=== PATIENT | male | born 1985 | race Caucasian/White ===

== ENCOUNTER 2023-08-14 15:34 | Outpatient (AMB) | payer OTHER, SELFPAY ==
[2023-08-14 15:37] VITALS: BP 130/80; PULSE 96; TEMP 36.6; O2SAT 97; BMI 40.2
--- NOTE | 2023-08-14 15:37 | MHC.OFFWIV ---
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 He is between doctors and is looking for a refill of Zoloft. He has been taking Zoloft 150 mg for the past ten years. Was seeing a provider in [place] and could not continue to see him for insurance reasons. Was at [facility] and was directed here for a refill. Currently not working. Denies alcohol or drug use. [facility] Medical History (Updated 08/14/23 @ 15:57 by Ricki Patel MD) Generalized anxiety disorder Social History Patient Tobacco Use Status: Never used Tobacco Physical Exam Vital Signs: Last Vital Signs Temp 97.8 F 08/14/23 15:37 Pulse 96 08/14/23 15:37 BP 130/80 08/14/23 15:37 Pulse Ox 97 08/14/23 15:37 BMI result Body Mass Index 40.2 Const General: cooperative and healthy appearing Nutritional Appearance: well nourished Orientation/consciousness: patient oriented x3 Limitations: no limitations HEENT Head: Yes normal to inspection Eyes General: appearance normal, both eyes and all related structures Neck Neck: Yes normal visual inspection Chest Chest palpation & inspection: normal palpation of entire chest wall Resp Effort & Inspection: normal respiratory effort Neuro General: patient oriented x3 Assessment & Plan Assessment & Plan (1) Generalized anxiety disorder: Code(s): F41.1 - Generalized anxiety disorder Plan: Zoloft called in. Message sent to see if he can be seen earlier at [facility]. Coding Level of Care Code New Pt Level 3 (75287) Diagnoses Generalized anxiety disorder F41.1
== END 2023-08-14 16:02 | disposition home or self-care (01) ==
PROVIDERS: PCP Pediatrics; Visit Provider Internal Medicine
DX: F41.1 Generalized anxiety disorder (principal)
CPT/HCPCS: 99203

== ENCOUNTER 2023-10-25 11:51 | Outpatient (AMB) | payer OTHER, SELFPAY ==
--- NOTE | 2023-10-25 11:53 | A.OFFPC_ITS ---
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 Required: No Allergies No Known Allergies Allergy (Verified 10/25/23 12:23) Medication List - Last Reconciled 10/25/23 by DEREK HillP- sertraline 150 mg (1.5 x 100 mg) PO Q24H Tobacco use date assessed: 10/25/23 Dental Screening Dental Screen Date: 10/25/23 Did you have a dental visit in the last 12 months?: No Did you have a dental problem in the last 6 months where you did not have access to dental care?: No Was dental information given to patient?: Patient has dentist HPI HPI Comments History of Present Illness Details 38-year-old with ALEKSANDER, obesity Social: unemployed Surgery: testicular surgery in childhood Family: Dad age 53 with FL with AICD & DM, Mom healthy. Siblings brother and sister alive and well. Children none Maternal uncle age 50 of colon cancer Health Maintenance: ? Colon ? Tdap will update today Specialists: None Here today to establish care and for complete physical exam No previous medical records available to me. Overall reports that he is in a good state of health. He was not treated for any chronic health conditions other than his generalized anxiety disorder which is well controlled on sertraline. He is not currently active with a counselor, he is interested in a referral. He does complain of trouble with distance reading. He does not currently wear eyeglasses. His last eye exam was 5 years ago. He reports a cyst on his back that he has had for as long as he knows. Has not changed. It is not painful. The only other complaint is that of chronic nasal congestion that seems to be worse at the end of the day when he was showering. Feels like this may be started a few months ago. Wondered if maybe it was seasonal allergies as start taking atsr-vtu-[id number] antihistamine without relief. He does admit that he snores however denies any other symptoms related to sleep apnea. He has never had a sleep study. Wakes feeling rested. General: Well developed, well nourished, in no acute distress. Appears stated age. Head: Normocephalic, atraumatic. Eyes: Pupils are equal, round and reactive to light and accommodation. Conjunctivae are clear. Vision grossly normal. Ears: TMs clear AU, EACS WNL + congestion behind both TM Nose: Patent, without discharge. Nares pale and edematous bilat Mouth: There are no ulcers or lesions noted. No inflammation, no post nasal drip, no plaques nor exudates. Neck: Supple, no adenopathy or thyromegaly. Lungs: Clear to auscultation bilaterally. No rales, rhonchi or wheeze noted. Good air flow in all das. Heart: Regular rate and rhythm. No murmurs, click, rubs or gallops are noted. Abdomen: Bowel sounds present in all quadrants. The abdomen is soft, nontender, with no masses or organomegaly noted. No hernias are noted. Musculoskeletal: Joints are nontender, without swelling, redness, or effusions. Range of motion is observed to be normal. Pulses: Peripheral pulses are equal and palpable bilaterally. Extremities: No clubbing, cyanosis nor edema is noted. Neurologic: Gait and station normal. Cranial Nerves 2-12 intact. Motor strength grossly symmetrical and intact. No sensory loss. Balance normal. Skin: No rashes, ulcers, or lesions noted. Turgor is good. Skin color is good. Hair and nails are without abnormalities. Midline upper back is palpable cyst Psych: Normal eye contact, affect and mood appropriate, and normal interactions. Patient is alert and appropriate to context. Labs from today show normal electrolytes, normal renal function, normal fasting glucose, hemoglobin A1c 5.5%, normal LFTs, normal lipid profile, normal TSH, elevated urine microalbumin creatinine ratio to 226.6 Plan: Flonase for nasal congestion Screening labs today within normal limits with the exception of an elevated urine microalbumin creatinine ratio. This could be related to hydration status. We will have him liberally hydrate and we will repeat this in the future. RTO 1 year for CPE, sooner PRN Tdap today Counseling referral Optho referral [facility] Medical History (Updated 10/25/23 @ 15:44 by Karma Mayorga, SALES DEVELOPMENT REPRESENTATIVE-) History of OCD (obsessive compulsive disorder) Depression Anxiety Generalized anxiety disorder Family History (Updated 10/25/23 @ 12:06 by Ally Alex) Father Diabetes Social History Housing: House Patient Tobacco Use Status: Never used Tobacco e-Cigarette/Vaping Use: Never Used service: No Current occupational status: unemployed Current occupational exposures/hazards: No Cognitive needs: No Vision needs: No Questionnaire PHQ-9 Over the last 2 weeks, how often have you been bothered by any of the following problems? 1. Little interest or pleasure in doing things: not at all 2. Feeling down, depressed, or hopeless: not at all 3. Trouble falling or staying asleep, or sleeping too much: not at all 4. Feeling tired or having little energy: not at all 5. Poor appetite or overeating: not at all 6. Feeling bad about yourself - or that you are a failure or have let yourself or your family down: not at all 7. Trouble concentrating on things, such as reading the newspaper or watching television: not at all 8. Moving or speaking so slowly that other people could have noticed. Or the opposite - being so fidgety or restless that you have been moving around a lot more than usual: not at all 9. Thoughts that you would be better off or of hurting yourself in some way: not at all Total score: 0 Depression Screening Interpretation: Negative Depression Screening Done: Yes 11681 - PHQ-9 Billing: Yes Source: Developed by Drs. Sae Fam, Gretta Alvarez, Wilbur Paul and colleagues, with an educational anand from [employer]. Thrive Questionnaire Date Thrive assessed: 10/25/23 I am a: Patient What is your living situation today?: I have a steady place to live Within the past 12 months, did the food you bought not last and you didn't have the money to get more?: Never true Within the past 12 months, did you worry whether your food would run out before you got money to buy more?: Never true Do you have trouble paying for medicines?: No Do you have trouble getting transportation to medical appointments?: No Do you have trouble paying your heating and electricity bill?: No Do you have trouble taking care of your child, family member or friend?: No Do you have trouble with day-to-day activities such as bathing, preparing meals, shopping, managing finances, etc.?: No Are you currently unemployed and looking for a job?: No Are you interested in more education?: No Please select the resources that you would like help with: None Currently or been in a relationship where the following occur: No concerns reported THRIVE Score: 0 AUDIT C Alcohol Use Questionnaire (AUDIT-C) 1. How often do you have a drink containing alcohol?: Monthly or less (couple times a year) 2. How many drinks containing alcohol do you have on a typical day when you are drinking?: 1 or 2 3. How often do you have six or more drinks on one occasion?: Never Total Score: 1 Score Reviewed/Action Taken: Yes ALEKSANDER-7 AMB Questionnaire ALEKSANDER-7 Date ALEKSANDER - 7 assessed: 10/25/23 Feeling nervous, anxious, or on edge: 0 = Not at all Not being able to stop or control worryin = Several days Worrying too much about different things: 1 = Several days Trouble relaxin = Several days Being so restless that it is hard to sit still: 0 = Not at all Becoming easily annoyed or irritable: 0 = Not at all Feeling afraid as if something awful might happen: 0 = Not at all Total ALEKSANDER-7 score (0-4 normal; 5-9 mild; 10-14 moderate; 15-21 severe): 3 Source: Developed by Drs. Sae Fam, Gretta Alvarez, Wilbur Paul and colleagues, with an educational anand from [employer]. ALEKSANDER-7 Assessment Billing ALEKSANDER-7 Assessment Tool: ALEKSANDER-7 Assessment 97678 Physical exam (Primary Care) Vital Signs: Last Vital Signs Temp 97.5 F 10/25/23 12:00 Pulse 85 10/25/23 12:00 Resp 16 10/25/23 12:00 BP 138/78 10/25/23 12:00 Pulse Ox 98 10/25/23 12:00 Oxygen Delivery Method Room Air 10/25/23 12:00 BMI result Body Mass Index 43.5 BMI Assessment/Plan discussion: High BMI High, discussed plan: lifestyle Tobacco/Smoking Status: Tobacco use Status Tobacco use date assessed 10/25/23 10/25/23 11:59 Patient Tobacco Use Status Never used Tobacco 10/25/23 11:56 e-Cigarette/Vaping Use Never Used 10/25/23 11:59 PHQ-9: PHQ-9 Score PHQ-9: Total score 0 10/25/23 12:59 Depression Screening Interpretation: Negative Thrive Assessment: Date of Thrive Assessment Date Thrive assessed 10/25/23 10/25/23 12:08 Currently or been in a relationship where the following occur: No concerns reported Immunizations Boostrix Tdap 2.5 Lf unit-8 mcg-5 Lf/0.5 mL intramuscular syringe Performing Provider: NGA [facility] [place] [facility] [place] [facility] Administered by: Iram Posadas CMA on 10/25/23 12:57 Dose Route Admin Location Dispensed Lot Number Expiration Date [employer] Program Analyst 0.5 mL IM Left Deltoid 0.5 mL [id number] 11/08/25 [id number] [employer] VIS Given Date VIS Provided VIS Publication Date 10/25/23 Single Vaccine 20 Eligibility Eligibility Date Funding Source Not [facility] Eligible 10/25/23 Private Assessment and Plan Assessment & Plan (1) Encounter for general adult medical examination without abnormal findings: Code(s): Z00.00 - Encounter for general adult medical examination without abnormal findings (2) Laboratory exam ordered as part of routine general medical examination: Code(s): Z00.00 - Encounter for general adult medical examination without abnormal findings (3) Generalized anxiety disorder: Code(s): F41.1 - Generalized anxiety disorder (4) Blurred vision: Code(s): H53.8 - Other visual disturbances (5) Obesity, morbid, BMI 40.0-49.9: Code(s): E66.01 - Morbid (severe) obesity due to excess calories Orders: Orders Hemoglobin A1c Today Z00.00 - Encounter for general adult medical examination without abnormal findings Lipid Panel Today Z00.00 - Encounter for general adult medical examination without abnormal findings Comprehensive [place]. Panel Fast Today Z00.00 - Encounter for general adult medical examination without abnormal findings TSH reflex Free T4 Today Z00.00 - Encounter for general adult medical examination without abnormal findings Microalbumin, Random (w Creat) Today Z00.00 - Encounter for general adult medical examination without abnormal findings TDaP Immunization Today Z23 - Encounter for immunization Referrals Counseling Referral F41.1 - Generalized anxiety disorder Ophthalmology Referral H53.8 - Other visual disturbances Medications: New fluticasone propionate 50 mcg/actuation administer into each nostril 1 spray intranasal BID 16 grams 8RF Refilled sertraline 150 mg (1.5 x 100 mg) PO Q24H 90 tabs 0RF Patient Instructions: Walk-In Care (Urgent Care): We Make it Easy Walk-in for urgent medical issues such as: ? Seasonal Allergies ? Insect Bites ? Cough ? Diarrhea ? Acute Asthma Attacks ? Back, Knee or Joint Pain ? Ear Infection ? Fever without a Rash ? Headaches ? Nausea ? [place], Rash or Skin Irritation ? Sore Throat ? Sports Physicals ? Vomiting Most insurances are accepted. Patients do not need to be part of the [facility] to seek care at the walk-in clinic. Locations [facility] , [place] [address] ? [phone] [facility] [place] provides services to ages 18 and over. Open Sunday-Sunday: 8 a.m. to 5 p.m. and Sunday: 9 a.m. to 3 p.m.* *Hours may vary due to staffing availability. To confirm Walk-In Care hours in [place], please call [phone]. [address] [place] [address] ? [phone] [facility] [place] provides services to ages 12 and over. Open Sunday-Sunday: 8 a.m. to 5 p.m. Hours may vary due to staffing availability. To confirm Walk-In Care hours in [place], please call [phone]. LABORATORY SERVICES: [facility] Lab ? Primary Location [address] [place] [address] Sunday through Sunday 6:00 AM ? 5:00 PM Sunday 7:00 AM ? 11:00 AM* [phone] The [facility] Lab is centrally located near the front entrance of the [facility] for easy outpatient access. Convenient parking is provided for outpatients. *Hours may vary due to staffing availability. To confirm Laboratory hours for any location, please call [phone]. Offsite Location For your convenience, we offer offsite laboratory draw stations at the following locations: [address] [place] [address] [address], [address], [place] Sunday through Sunday 7:30 AM ? 1:00 PM* [phone] *Hours may vary due to staffing availability. To confirm Laboratory hours for a [place] location, please call [phone]. [place] ? [facility] [address] [facility], [place] Sunday through Sunday 6:00 AM ? 3:30 PM* Sunday 6:30 AM ? 3 PM* [phone] *Hours may vary due to staffing availability. To confirm Laboratory hours for any location, please call [phone] [place] [address] Sunday through Sunday 7:30 AM ? 4:00 PM* [phone] *Hours may vary due to staffing availability. To confirm Laboratory hours for any location, please call [phone] [place] [address] Sunday through 9:00 AM ? 4:00 PM* *Hours may vary due to staffing availability. To confirm Laboratory hours for any location, please call [phone]. Appointments are not necessary. Walk-ins are welcome. Like all the departments throughout the [facility], our Lab undergoes frequent reviews to ensure the quality and accuracy of test results, and our staff takes special pride in its status as a nationally accredited facility. Patient Portal: ONE PATIENT. ONE RECORD. BETTER CARE. [facility] has a fully integrated, cutting- edge mobile electronic health information system that has revolutionized the way we care for our patients and manage our organization. This system improves communication and coordination enabling us to provide safe, higher-quality care, and an overall positive experience for staff and patients. Our first priority, as always, is to deliver the highest quality care possible. The system is running in the background supporting that priority. This portal is for all [facility] services and practices. If you are experiencing any technical difficulties with enrolling or logging into the Patient Portal please complete the [facility] Patient Portal Technical Support Form. [facility] now offers a new secure on-line interactive tool for patients to review their health information ? ?Patient Portal. This interactive web portal will enable patients and their families to take an active role in their care by providing easy, secure access to their health information via the internet. The Patient Portal provides patients with instant access to their health information, including laboratory results, medications, allergies, demographic information, visit history, and more. In addition to managing their own care, parents and health care proxies with authorized consent will appreciate the ability to access the records of those individuals for whom they provide care. Please note: if you wish to gain access (Proxy) to another patient?s portal, you will be required to come to the Medical Records Department in person at [facility]. Both the patient giving proxy access and the proxy will need to provide photo identification and complete the appropriate authorization. The Patient Portal also allows track their appointments online. The [facility] Patient Portal also saves patients time by allowing them to submit updates to their demographic and contact information prior to their visits. Portal email notifications will also alert patients to any new activity on their portal, such as test results and new appointments. In order to initially enroll in the [facility] Patient Portal, you will need to enter some required information including the following: * your [facility] Medical Record number * your personal home email address * name * date of Please note: In order to enroll in the [facility] Patient Portal, we need to have your email address on file in your electronic medical record. ?The email address needs to be specific for one person (yourself) in order for your Portal enrollment to be successful. ?You can update your email address in person with our Registration staff when you are registering for a hospital visit. ?Otherwise, you will need to come to the Health Information Management (Medical Records) Department at [facility]. ?We are open from Sunday ? Sunday from 7:30 a.m. ? 4:30 p.m. ?You will be required to present a photo id. Once you have successfully enrolled in the Patient Portal, you will receive a one-time user id and password for the Portal, sent to your email address. ?This will allow you to log into the Patient Portal within 99 hrs and reset your own logon id and password, and define personal security questions. ?Once your permanent login and password have been set, you can log into the [facility] Patient Portal at any time via the blue button above or from the Portal Logon button on any page of the [facility] website. [facility] encourage all of our patients to enroll in Patient Portal as it presents a valuable opportunity for patients and their families to actively participate in their care and stay healthy Welcome to [facility]. ?We look forward to working with you. Health screenings for men ages 40 to 64 You should visit your health care provider regularly, even if you feel healthy. The purpose of these visits is to: Screen for medical issues Assess your risk for future medical problems Encourage a healthy lifestyle Update vaccinations and other preventive care services Help you get to know your provider in case of an illness Information Even if you feel fine, you should still see your provider for regular checkups. These visits can help you avoid problems in the future. For example, the only way to find out if you have high blood pressure is to have it checked regularly. High blood sugar and high cholesterol level also may not have any symptoms in the early stages. Simple blood tests can check for these conditions. There are specific times when you should see your provider or receive specific health screenings. The [place] Preventive Services Task Force publishes a list of recommended screenings. Below are screening guidelines for men ages 40 to 64. BLOOD PRESSURE SCREENING Have your blood pressure checked at least once every year. Watch for blood pressure screenings in your area. Ask your provider if you can stop in to have your blood pressure checked. Ask your provider if you need your blood pressure checked more often if: You have diabetes, heart disease, kidney problems, or are overweight or have certain other health conditions You have a first-degree relative with high blood pressure You are Black Your blood pressure top number is from 120 to 129 mm Hg, or the bottom number is from 70 to 79 mm Hg If the top number is 130 mm Hg or greater or the bottom number is 80 mm Hg or greater, this is considered stage 1 hypertension. Schedule an appointment with your provider to learn how you can lower your blood pressure. Effects of age on blood pressure CHOLESTEROL SCREENING Cholesterol screening should begin at age 35 for men with no known risk factors for coronary heart disease. Repeat cholesterol screening should take place: Every 5 years for men with normal cholesterol levels More often if changes occur in lifestyle (including weight gain and diet) More often if you have diabetes, heart disease, kidney problems, or certain other conditions COLORECTAL CANCER SCREENING If you are under age 45, talk to your provider about getting screened. You may need to be screened if you have a strong family history of colon cancer or polyps. Screening may also be considered if you have risk factors such as a history of inflammatory bowel disease or polyps. If you are age 45 to 75, you should be screened for colorectal cancer. There are several screening tests available: A stool-based fecal occult blood (gFOBT) or fecal immunochemical test (FIT) every year A stool sDNA test every 1 to 3 years Flexible sigmoidoscopy every 5 years or every 10 years with stool testing FIT done every year CT colonography (virtual colonoscopy) every 5 years Colonoscopy every 10 years You may need a colonoscopy more often if you have risk factors for colorectal cancer, such as: Ulcerative colitis A personal or family history of colorectal cancer A history of growths in your colon called adenomatous polyps DENTAL EXAM Go to the dentist once or twice every year for an exam and cleaning. Your dentist will evaluate if you have a need for more frequent visits. DIABETES SCREENING All adults who do not have risk factors for diabetes should be screened starting at age 35 and repeated every 3 years. If you have other risk factors for diabetes, such as a first degree relative with diabetes, overweight or obesity, high blood pressure, prediabetes, or a history of heart disease, you may be tested more often. If you are overweight and have other risk factors, such as high blood pressure and are planning to become , screening is recommended. EYE EXAM Have an eye exam every 2 to 4 years ages 40 to 54 and every 1 to 3 years ages 55 to 64. Your provider may recommend more frequent eye exams if you have vision problems or glaucoma risk. Have an eye exam that includes an examination of your retina (back of your eye) at least every year if you have diabetes. IMMUNIZATIONS Commonly needed vaccines include: Flu shot: get one every year COVID-19 vaccine: ask your provider what is best for you Tetanus-diphtheria and acellular pertussis (Tdap) vaccine: have as one of your tetanus-diphtheria vaccines if you did not receive it as an adolescent Tetanus-diphtheria: have a booster (or Tdap) every 10 years Varicella vaccine: receive 2 doses if you never had chickenpox or the varicella vaccine and were born in 1980 or after Hepatitis B vaccine: receive 2, 3, or 4 doses, depending on your exact circumstances, if you did not receive these as a child or adolescent, until age 59 Shingles (herpes zoster) vaccine: at or after age 50 Ask your provider if you should receive other immunizations, especially if you have certain medical conditions, such as diabetes or are at increased risk for some diseases such as pneumonia. INFECTIOUS DISEASE SCREENING Screening for hepatitis C: all adults ages 18 to 79 should get a one-time test for hepatitis C. Screening for human immunodeficiency virus (HIV): all people ages 15 to 65 should get a one-time test for HIV. Depending on your lifestyle and medical history, you may need to be screened for infections such as syphilis, chlamydia, and other infections. LUNG CANCER SCREENING You should have an annual screening for lung cancer with low-dose computed francis graphy (LDCT) if: You are age 50 to 80 years AND You have a 20 pack-year smoking history AND You currently smoke or have quit within the past 15 years OSTEOPOROSIS SCREENING If you are age 50 to 64 and have risk factors for osteoporosis, you should discuss screening with your provider. Risk factors can include long-term steroid use, low body weight, smoking, heavy alcohol use, having a fracture after age 50, or a family history of hip fracture or osteoporosis. Osteoporosis PHYSICAL EXAM All adults should visit their provider from time to time, even if they are healthy. The purpose of these visits is to: Screen for diseases Assess risk of future medical problems Encourage a healthy lifestyle Update vaccinations and other preventive care services Maintain a relationship with a provider in case of an illness Your height, weight, and body mass index (BMI) should be checked at every exam. During your exam, your provider may ask you about: Depression and anxiety Diet and exercise Alcohol and tobacco use Safety, such as use of seat belts and smoke detectors Your medicines and risk for interactions PROSTATE CANCER SCREENING If you're 55 through 69 years old, before having the test, talk to your provider about the pros and cons of having a PSA test. Ask about: Whether screening decreases your chance of dying from prostate cancer. Whether there is any harm from prostate cancer screening, such as side effects from testing or overtreatment of cancer when discovered. Whether you have a higher risk of prostate cancer than others. If you are age 55 or younger, screening is not generally recommended. You should talk with your provider about if you have a higher risk for prostate cancer. Risk factors include: Having a family history of prostate cancer (especially a brother or father) Being If you choose to be tested, the PSA blood test is repeated over time (yearly or less often), though the best frequency is not known. Prostate examinations are no longer routinely done on men with no symptoms. Prostate cancer SKIN EXAM Your provider may check your skin for signs of skin cancer, especially if you're at high risk. People at high risk include those who have had skin cancer before, have close relatives with skin cancer, or have a weakened immune system. TESTICULAR EXAM The [place] Preventive Services Task Force (USPSTF) now recommends against performing testicular self-exams. Doing testicular self-exams has been shown to have little to no benefit. Coding Level of Care Code New Pt Prev Care 18-39yr(01710 Diagnoses Encounter for general adult medical examination without abnormal findings Z00.00 Laboratory exam ordered as part of routine general medical examination Z00.00 Generalized anxiety disorder F41.1 Blurred vision H53.8 Obesity, morbid, BMI 40.0-49.9 E66.01 Additional Codes ALEKSANDER-7 Assessment Billing - ALEKSANDER-7 Assessment Tool: ALEKSANDER-7 Assessment 51240 ([id number])
[2023-10-25 12:00] VITALS: BP 138/78; PULSE 85; RESP 16; TEMP 36.4; O2SAT 98; BMI 43.5
== END 2023-10-25 12:54 | disposition home or self-care (01) ==
PROVIDERS: PCP Pediatrics; Visit Provider Nurse Practitioner Family
DX: Z00.00 Encounter for general adult medical examination without abnormal findings (principal); E66.01 Morbid (severe) obesity due to excess calories; Z68.41 Body mass index [BMI] 40.0-44.9, adult; Z23 Encounter for immunization; F41.1 Generalized anxiety disorder; H53.8 Other visual disturbances
CPT/HCPCS: 90471; 90715; 99385

== ENCOUNTER 2023-10-25 12:58 | Outpatient (REF) | payer OTHER, SELFPAY ==
[2023-10-25 14:16] LABS: Estimated Average Glucose 105 mg/dL; Hemoglobin A1c % 5.3 % (<6.0)
[2023-10-25 14:37] LABS: Creatinine Urine 259.83 mg/dL
[2023-10-25 14:43] LABS: Alanine Aminotransferase 14 U/L (0-40); Albumin Level 3.9 g/dL (3.5-5.0); Alkaline Phosphatase 116 U/L (39-117); Anion Gap 11 (12-20); Aspartate Amino Transferase 23 U/L (5-37); Bilirubin Total 0.3 mg/dL (0.0-1.0); Blood Urea Nitrogen 7 mg/dL (9-16); Calcium 9.1 mg/dL (8.4-10.2); Carbon Dioxide 26 mmol/L (22-29); Chloride 107 mmol/L (96-108); Cholesterol 104 mg/dL (<200); Estimated Glomerular Filt Rate > 60; Glucose Fasting 98 mg/dL (60-99); HDL Cholesterol 36 mg/dL (>40); LDL Cholesterol Calculated 54 mg/dL (<100); Potassium 4.1 mmol/L (3.3-5.1); Sodium 140 mmol/L (135-145); Total Protein 7.8 g/dL (6.5-8.0); Triglycerides 72 mg/dL (<150)
[2023-10-25 14:53] LABS: Microalbum/Creatinine Ratio Ur 226.6 ug/mg cr (<30)
[2023-10-25 14:58] LABS: TSH reflex Free T4 2.85 uIU/mL (0.32-4.0)
== END 2023-10-25 12:59 | disposition home or self-care (01) ==
LOC: HO.WFDLDS 12:58
PROVIDERS: Visit Provider Nurse Practitioner Family
DX: Z00.00 Encounter for general adult medical examination without abnormal findings (principal)
CPT/HCPCS: 36415; 80053; 80061; 82043; 82570; 83036; 84443

== ENCOUNTER 2024-10-28 11:53 | Outpatient (AMB) | payer OTHER, SELFPAY ==
--- NOTE | 2024-10-28 12:03 | A.OFFPC_ITS ---
Vital Signs 10/28/24 12:07 Height 6 ft 1 in Weight 335 lb 8 oz BMI 44.3 BP 132/75 Blood Pressure Location Rt brachial Position Sitting Respiration 12 Pulse 78 Pulse Source Pulse Oximeter Temp 97.1 F Temp Source Oral Pulse Oximetry (%) 99 Oxygen Delivery Method Room Air Intake Visit Reasons: CPE Intake Note: CPE. Patient c/o blood when wiping after having a bowel movement. Health Record Technician Required: No Allergies No Known Allergies Allergy (Verified 10/28/24 12:11) Medication List - Last Reconciled 10/28/24 by Karma Mayorga, [facility]- fluticasone propionate 50 mcg/actuation 1 spray intranasal BID sertraline 150 mg (1.5 x 100 mg) PO DAILY Tobacco use date assessed: 10/28/24 Dental Screening Dental Screen Date: 10/28/24 Did you have a dental visit in the last 12 months?: Yes Did you have a dental problem in the last 6 months where you did not have access to dental care?: No Was dental information given to patient?: Patient has dentist HPI HPI Comments History of Present Illness Details 39-year-old with ALEKSANDER, obesity, family hx colon CA and CVD, obesity, elevated microalbumin, hemorrhoids Social: unemployed Surgery: testicular surgery in childhood Family: Dad age 53 with RI with AICD & DM, Mom healthy. Siblings brother and sister alive and well. Children none Maternal uncle age 50 of colon cancer Health Maintenance Tdap 2023 Specialists Counseling Optho History of Present Illness - The patient is a 39 year old male pres enting for a complete physical exam. - Obesity with a BMI of 44.3. - Generalized Anxiety Disorder, on sertr hafsa 150 mg daily, well controlled; didnt follow through on counseling referral; would like new one initiated - Seasonal allergies managed with Flonas e as needed with + effect - History of elevated microalbumin one y ear ago without follow-up test. He will repeat today. - Occasional BRBPR associated with hemo rrhoids, no pain reported. - Normal bowel movements. - No significant changes in health, hosp italizations, surgeries, or new allergies. - Past ear infections controlled with na jhonatan spray. - Previous referral to the eye doctor leyla s closed as the patient passed a vision test during a license renewal. Family History - No changes in family medical history s vic the last year. Review of Systems - Gastrointestinal: Reports occasional r ectal bleeding, denies pain. - Eyes: Denies vision changes. - Musculoskeletal: Denies any new or rec ent concerns. - Allergic/Immunologic: Reports seasonal allergies managed with Flonase. - : The patient reports normal bowel and bladder function. Physical Exam General: Well developed, well nourished, in no acute distress. Appears stated age. Head: Normocephalic, atraumatic. Eyes: Pupils are equal, round, and reactive to light and accommodation. Conjunctivae are clear. Vision grossly normal. Ears: TMs clear AU, EACS WNL. The patient reports feeling better with the use of nasal spray, which helps prevent ear infections. Nose: Patent, without discharge. Neck: Supple, no adenopathy or thyromegaly. No pain or tenderness upon examination. Breast: Edu on SBE Lungs: Clear to auscultation bilaterally. No rales, rhonchi, or wheeze noted. Good airflow in all das. Heart: Regular rate and rhythm. No murmurs, clicks, rubs, or gallops are noted. Abdomen: Bowel sounds present in all quadrants. The abdomen is soft, nontender, with no masses or organomegaly noted. No hernias are noted. : Deferred. Reviewed VALARIE & recommendations for routine INSURANCE ADMINISTRATOR. Pulses: Peripheral pulses are equal and palpable bilaterally. Extremities: No clubbing, cyanosis, nor edema is noted. Onychomycosis all toe nails Neurologic: Gait and station normal. Cranial Nerves 2-12 intact. Motor strength grossly symmetrical and intact. No sensory loss. Balance normal. Skin: No rashes, ulcers, or lesions noted. Turgor is good. Skin color is good. Hair and nails are without abnormalities. Psych: Normal eye contact, affect and mood appropriate, and normal interactions. Patient is alert and appropriate to context. Results Reviewed 10/2023 Labs, all WNL except Microalbuminuria; He declined repeat labs today other than urine. Discussion Notes I discussed with the patient his ongoing health concerns and addressed his complete physical examination. We reviewed that adherence to his current medications is crucial, with continued use of sertraline and Flonase as prescribed. I informed him about the elevated microalbumin results last year and emphasized the importance of a follow-up test. The patient was informed about the likely diagnosis of hemorrhoids causing occasional rectal bleeding, with an option for referral to the hemorrhoid specialist discussed. Provided guidance on lifestyle adjustments, especially focusing on hydration to prevent high results in urine tests and reiterated the benefits of maintaining general wellness. I encouraged adherence to counseling appointments, offered a referral to ensure manageable scheduling, and confirmed adjustments in prescribed medications are available for continued use. The follow-up care includes the planned tests and consultations, with reminders provided for patient autonomy in managing ongoing care. Assessment and Plan 1. Obesity - Encouraged weight loss, lifestyle silva ge. 2. Generalized Anxiety Disorder - Sertraline 150 mg daily, counseling re ferral. 3. Seasonal Allergies - Flonase PRN. 4. Elevated Microalbumin - Urine test follow-up, advise good hydr ation. 5. Hemorrhoids - Referral for evaluation and management . 6. Onychomycosis Refer to podiatry Patient Instructions - Follow up with all scheduled referrals and appointments as discussed. - Stay hydrated and submit the urine maggie ple after drinking adequate fluids. - Continue taking sertraline and use Luc nase when needed. - Monitor for changes or exacerbation in symptoms, especially related to hemor rhoids, anxiety, and allergies. - Follow up with the certified industrial hygienist if [place] symptoms worsen. - Maintain a balanced diet, regular exer cise, and healthy lifestyle to assist weight management. - RTO 1 year CPE sooner PRN Consent Patient was informed and verbally consented to the use of an ambient scribe for clinic note documentation during this visit. An additional 15 minutes was spent addressing the problem(s) noted at todays visit. This includes time spent before the visit reviewing the chart, time spent during the visit, and time spent after the visit on documentation reviewing laboratory results, diagnostic imaging, medications, performing a medically necessary evaluation, counseling on diagnoses, care coordination, ordering appropriate tests, ordering appropriate medications, review of tests performed by other providers, reporting test results with the patient, communication with other healthcare providers. [facility] Medical History (Updated 10/28/24 @ 12:33 by NGA Hill) Anxiety Depression Generalized anxiety disorder History of OCD (obsessive compulsive disorder) Family History (Updated 10/25/23 @ 12:06 by Ally Alex MA) Father Diabetes Social History Housing: House Patient Tobacco Use Status: Never used Tobacco e-Cigarette/Vaping Use: Never Used Second Hand Smoke Exposure: No service: No Current occupational status: unemployed Current occupational exposures/hazards: No Cognitive needs: No Hearing needs: No Vision needs: No Questionnaire PHQ-9 Over the last 2 weeks, how often have you been bothered by any of the following problems? 1. Little interest or pleasure in doing things: not at all 2. Feeling down, depressed, or hopeless: not at all 3. Trouble falling or staying asleep, or sleeping too much: several days 4. Feeling tired or having little energy: not at all 5. Poor appetite or overeating: not at all 6. Feeling bad about yourself - or that you are a failure or have let yourself or your family down: not at all 7. Trouble concentrating on things, such as reading the newspaper or watching television: not at all 8. Moving or speaking so slowly that other people could have noticed. Or the opposite - being so fidgety or restless that you have been moving around a lot more than usual: not at all 9. Thoughts that you would be better off or of hurting yourself in some way: not at all Total score: 1 Depression Screening Interpretation: Negative Depression Screening Done: Yes 77836 - PHQ-9 Billing: Yes Source: Developed by Drs. Sae Fam, Gretta Alvarez, Wilbur Paul and colleagues, with an educational anand from [employer]. Thrive Questionnaire Date Thrive assessed: 10/28/24 I am a: Patient What is your living situation today?: I have a steady place to live Within the past 12 months, did the food you bought not last and you didn't have the money to get more?: Never true Within the past 12 months, did you worry whether your food would run out before you got money to buy more?: Never true Do you have trouble paying for medicines?: No Do you have trouble getting transportation to medical appointments?: No Do you have trouble paying your heating and electricity bill?: No Do you have trouble taking care of your child, family member or friend?: No Do you have trouble with day-to-day activities such as bathing, preparing meals, shopping, managing finances, etc.?: No Are you currently unemployed and looking for a job?: No Are you interested in more education?: No Please select the resources that you would like help with: None Currently or been in a relationship where the following occur: No concerns reported THRIVE Score: 0 AUDIT C Alcohol Use Questionnaire (AUDIT-C) 1. How often do you have a drink containing alcohol?: Monthly or less 2. How many drinks containing alcohol do you have on a typical day when you are drinking?: 1 or 2 3. How often do you have six or more drinks on one occasion?: Never Total Score: 1 Score Reviewed/Action Taken: Yes ALEKSANDER-7 AMB Questionnaire ALEKSANDER-7 Date ALEKSANDER - 7 assessed: 10/28/24 Feeling nervous, anxious, or on edge: 0 = Not at all Not being able to stop or control worryin = Not at all Worrying too much about different things: 0 = Not at all Trouble relaxin = Not at all Being so restless that it is hard to sit still: 0 = Not at all Becoming easily annoyed or irritable: 0 = Not at all Feeling afraid as if something awful might happen: 0 = Not at all Total ALEKSANDER-7 score (0-4 normal; 5-9 mild; 10-14 moderate; 15-21 severe): 0 Source: Developed by Drs. Sae Fam, Gretta Alvarez, Wilbur Paul and colleagues, with an educational anand from [employer]. ALEKSANDER-7 Assessment Billing ALEKSANDER-7 Assessment Tool: ALEKSANDER-7 Assessment 20723 Physical exam (Primary Care) Vital Signs: Last Vital Signs Temp 97.1 F 10/28/24 12:07 Pulse 78 10/28/24 12:07 Resp 12 10/28/24 12:07 BP 132/75 10/28/24 12:07 Pulse Ox 99 10/28/24 12:07 Oxygen Delivery Method Room Air 10/28/24 12:07 BMI result Body Mass Index 44.3 BMI Assessment/Plan discussion: High BMI High, discussed plan: lifestyle Tobacco/Smoking Status: Tobacco use Status Tobacco use date assessed 10/28/24 10/28/24 12:09 Patient Tobacco Use Status Never used Tobacco 10/28/24 12:09 e-Cigarette/Vaping Use Never Used 10/28/24 12:09 PHQ-9: PHQ-9 Score PHQ-9: Total score 1 10/28/24 12:09 Depression Screening Interpretation: Negative Thrive Assessment: Date of Thrive Assessment Date Thrive assessed 10/28/24 10/28/24 12:09 Currently or been in a relationship where the following occur: No concerns reported Coding Level of Care Code Est Pt Level 2 (76912) Est Pt Prev Care 18-39y(54852) Diagnoses Encounter for general adult medical examination without abnormal findings Z00.00 Generalized anxiety disorder F41.1 Obesity, morbid, BMI 40.0-49.9 E66.01 Laboratory exam ordered as part of routine general medical examination Z00.00 Family history of colon cancer Z80.0 Family history of ASCVD (arteriosclerotic cardiovascular disease) Z82.49 Grade I hemorrhoids K64.0 Hemorrhoid type: first degree Microalbuminuria R80.9 Onychomycosis B35.1 Additional Codes ALEKSANDER-7 Assessment Billing - ALEKSANDER-7 Assessment Tool: ALEKSANDER-7 Assessment 23471 ([id number]) PHQ-9 - 48642 - PHQ-9 Billing: Yes ([id number]) Assessment & Plan Assessment & Plan (1) Encounter for general adult medical examination without abnormal findings: Onset Date: ~10/28/24 Code(s): Z00.00 - Encounter for general adult medical examination without abnormal findings Category: Medical (2) Generalized anxiety disorder: Code(s): F41.1 - Generalized anxiety disorder Category: Medical (3) Obesity, morbid, BMI 40.0-49.9: Code(s): E66.01 - Morbid (severe) obesity due to excess calories Category: Medical (4) Laboratory exam ordered as part of routine general medical examination: Code(s): Z00.00 - Encounter for general adult medical examination without abnormal findings Category: Medical (5) Family history of colon cancer: Comment: Maternal uncle age 50 of colon cancer Code(s): Z80.0 - Family history of malignant neoplasm of digestive organs Category: Medical (6) Family history of ASCVD (arteriosclerotic cardiovascular disease): Comment: Dad age 53 with RI with AICD Code(s): Z82.49 - Family history of ischemic heart disease and other diseases of the circulatory system Category: Medical (7) Hemorrhoids: Code(s): K64.9 - Unspecified hemorrhoids Category: Medical Qualifiers: Hemorrhoid type: first degree Qualified Code(s): K64.0 - First degree hemorrhoids (8) Microalbuminuria: Code(s): R80.9 - Proteinuria, unspecified Category: Medical (9) Onychomycosis: Code(s): B35.1 - Tinea unguium Category: Medical Plan . Orders: Orders Microalbumin, Random (w Creat) Today R80.9 - Proteinuria, unspecified Referrals Nurse Navigator Referral F41.1 - Generalized anxiety disorder Podiatry Referral B35.1 - Tinea unguium General Surgery Referral K64.9 - Unspecified hemorrhoids Medications: Refilled fluticasone propionate 50 mcg/actuation administer into each nostril 1 spray intranasal BID 16 grams 8RF Patient Instructions: Health screenings for men You should visit your health care provider regularly, even if you feel healthy. The purpose of these visits is to: Screen for medical issues Assess your risk for future medical problems Encourage a healthy lifestyle Update vaccinations and other preventive care services Help you get to know your provider in case of an illness Information Even if you feel fine, you should still see your provider for regular checkups. These visits can help you avoid problems in the future. For example, the only way to find out if you have high blood pressure is to have it checked regularly. High blood sugar and high cholesterol level also may not have any symptoms in the early stages. Simple blood tests can check for these conditions. There are specific times when you should see your provider or receive specific health screenings. The [place] Preventive Services Task Force publishes a list of recommended screenings. Below are screening guidelines for men ages 40 to 64. BLOOD PRESSURE SCREENING Have your blood pressure checked at least once every year. Watch for blood pressure screenings in your area. Ask your provider if you can stop in to have your blood pressure checked. Ask your provider if you need your blood pressure checked more often if: You have diabetes, heart disease, kidney problems, or are overweight or have certain other health conditions You have a first-degree relative with high blood pressure You are Black Your blood pressure top number is from 120 to 129 mm Hg, or the bottom number is from 70 to 79 mm Hg If the top number is 130 mm Hg or greater or the bottom number is 80 mm Hg or greater, this is considered stage 1 hypertension. Schedule an appointment with your provider to learn how you can lower your blood pressure. Effects of age on blood pressure CHOLESTEROL SCREENING Cholesterol screening should begin at age 35 for men with no known risk factors for coronary heart disease. Repeat cholesterol screening should take place: Every 5 years for men with normal cholesterol levels More often if changes occur in lifestyle (including weight gain and diet) More often if you have diabetes, heart disease, kidney problems, or certain other conditions COLORECTAL CANCER SCREENING If you are under age 45, talk to your provider about getting screened. You may need to be screened if you have a strong family history of colon cancer or polyps. Screening may also be considered if you have risk factors such as a history of inflammatory bowel disease or polyps. If you are age 45 to 75, you should be screened for colorectal cancer. There are several screening tests available: A stool-based fecal occult blood (gFOBT) or fecal immunochemical test (FIT) every year A stool sDNA test every 1 to 3 years Flexible sigmoidoscopy every 5 years or every 10 years with stool testing FIT done every year CT colonography (virtual colonoscopy) every 5 years Colonoscopy every 10 years You may need a colonoscopy more often if you have risk factors for colorectal cancer, such as: Ulcerative colitis A personal or family history of colorectal cancer A history of growths in your colon called adenomatous polyps DENTAL EXAM Go to the dentist once or twice every year for an exam and cleaning. Your dentist will evaluate if you have a need for more frequent visits. DIABETES SCREENING All adults who do not have risk factors for diabetes should be screened starting at age 35 and repeated every 3 years. If you have other risk factors for diabetes, such as a first degree relative with diabetes, overweight or obesity, high blood pressure, prediabetes, or a history of heart disease, you may be tested more often. If you are overweight and have other risk factors, such as high blood pressure and are planning to become , screening is recommended. EYE EXAM Have an eye exam every 2 to 4 years ages 40 to 54 and every 1 to 3 years ages 55 to 64. Your provider may recommend more frequent eye exams if you have vision problems or glaucoma risk. Have an eye exam that includes an examination of your retina (back of your eye) at least every year if you have diabetes. IMMUNIZATIONS Commonly needed vaccines include: Flu shot: get one every year COVID-19 vaccine: ask your provider what is best for you Tetanus-diphtheria and acellular pertussis (Tdap) vaccine: have as one of your tetanus-diphtheria vaccines if you did not receive it as an adolescent Tetanus-diphtheria: have a booster (or Tdap) every 10 years Varicella vaccine: receive 2 doses if you never had chickenpox or the varicella vaccine and were born in 1980 or after Hepatitis B vaccine: receive 2, 3, or 4 doses, depending on your exact circumstances, if you did not receive these as a child or adolescent, until age 59 Shingles (herpes zoster) vaccine: at or after age 50 Ask your provider if you should receive other immunizations, especially if you have certain medical conditions, such as diabetes or are at increased risk for some diseases such as pneumonia. INFECTIOUS DISEASE SCREENING Screening for hepatitis C: all adults ages 18 to 79 should get a one-time test for hepatitis C. Screening for human immunodeficiency virus (HIV): all people ages 15 to 65 should get a one-time test for HIV. Depending on your lifestyle and medical history, you may need to be screened for infections such as syphilis, chlamydia, and other infections. LUNG CANCER SCREENING You should have an annual screening for lung cancer with low-dose computed tomography (LDCT) if: You are age 50 to 80 years AND You have a 20 pack-year smoking history AND You currently smoke or have quit within the past 15 years OSTEOPOROSIS SCREENING If you are age 50 to 64 and have risk factors for osteoporosis, you should discuss screening with your provider. Risk factors can include long-term steroid use, low body weight, smoking, heavy alcohol use, having a fracture after age 50, or a family history of hip fracture or osteoporosis. Osteoporosis PHYSICAL EXAM All adults should visit their provider from time to time, even if they are healthy. The purpose of these visits is to: Screen for diseases Assess risk of future medical problems Encourage a healthy lifestyle Update vaccinations and other preventive care services Maintain a relationship with a provider in case of an illness Your height, weight, and body mass index (BMI) should be checked at every exam. During your exam, your provider may ask you about: Depression and anxiety Diet and exercise Alcohol and tobacco use Safety, such as use of seat belts and smoke detectors Your medicines and risk for interactions PROSTATE CANCER SCREENING If you're 55 through 69 years old, before having the test, talk to your provider about the pros and cons of having a PSA test. Ask about: Whether screening decreases your chance of dying from prostate cancer. Whether there is any harm from prostate cancer screening, such as side effects from testing or overtreatment of cancer when discovered. Whether you have a higher risk of prostate cancer than others. If you are age 55 or younger, screening is not generally recommended. You should talk with your provider about if you have a higher risk for prostate cancer. Risk factors include: Having a family history of prostate cancer (especially a brother or father) Being If you choose to be tested, the PSA blood test is repeated over time (yearly or less often), though the best frequency is not known. Prostate examinations are no longer routinely done on men with no symptoms. Prostate cancer SKIN EXAM Your provider may check your skin for signs of skin cancer, especially if you're at high risk. People at high risk include those who have had skin cancer before, have close relatives with skin cancer, or have a weakened immune system. TESTICULAR EXAM The [place] Preventive Services Task Force (USPSTF) now recommends against performing testicular self-exams. Doing testicular self-exams has been shown to have little to no benefit.
[2024-10-28 12:07] VITALS: BP 132/75; PULSE 78; RESP 12; TEMP 36.2; O2SAT 99; BMI 44.3
--- OUTSIDE RECORDS SUMMARY | 2024-10-28 12:53 | XMS_ITS | Clinical Summary ---
Author Organization [facility] Address [address] [facility] [address] [place] [id number] Phone Care Team Providers Care Business Development Representative Name Role Phone Karma Combs COMMUNITY PLACEMENT WORKER Primary Care Provider Allergies No known active allergies Medications sertraline (ZOLOFT) 100 MG tablet See Instructions , TAKE 1 AND 1/2 TABLETS BY MOUTH DAILY, # 135 tablet, Maintenance, 03/24/23 10:26:00 EST, [id number], 188.3, cm, 04/05/21 6:44:00 EST, Height 09/04/2022 Active sertraline (ZOLOFT) 100 MG tablet Take 1.5 tablets (150 mg total) by mouth daily for 10 days. 15 tablet 10/16/2023 Active Active Problems No known active problems Social History Tobacco Use Types Packs/Day Years Used Date Smoking Tobacco: Never Smokeless Tobacco: Never Education Answer Date Recorded Are you interested in more education? Not on yoanna e 10/16/2023 Are you concerned about learning? Not on file 10/16/2023 No 10/16/2023 No 10/16/2023 Digital Access Answer Date Recorded No 10/16/2023 No 10/16/2023 Reliable internet access at home? Not on file 10/16/2023 Device with a working camera? Not on file Sex and Gender Information Value Date Recorded Sex Assigned at Not on file Legal Sex Male 9:10 PM EDT Gender Identity Not on file Sexual Orientation Not on file Last Filed Vital Signs Vital Sign Reading Time Taken Comments Blood Pressure 122/80 10/16/2023 12:45 PM EDT Pulse 85 10/16/2023 12:45 PM EDT Temperature 36.8 C (98.3 F) 10/16/2023 12:45 PM EDT Respiratory Rate 18 10/16/2023 12:45 PM EDT Oxygen Saturation 98% 10/16/2023 12:45 PM EDT Inhaled Oxygen Concentration - - Weight - - Height - - Body Mass Index - - Plan of Treatment Health Maintenance Due Date Last Done Comments LIPID PANEL 1987 DEPRESSION SCREENING 1999 HEPATITIS C SCREENING 2005 HIV ONE-TIME SCREENING (18-6 5 YEARS) 2005 Adult Td,Tdap Booster 12/31/2016 12/31/2006 COVID-19 VACCINE (2023-2 5 season) 2023 SMOKING STATUS SCREENING (On ce After 26 Yrs) Completed 10/16/2023 HEPATITIS A VACCINES Aged Out No long er eligible based on patient's age to complete this topic HIB VACCINES Aged Out No longer eligi ble based on patient's age to complete this topic MENINGOCOCCAL VACCINES (ACWY) Aged Out No longer eligible based on patient's age to complete this topic MENINGOCOCCAL VACCINES (B) Aged Out N o longer eligible based on patient's age to complete this topic PNEUMOCOCCAL VACCINES (0-49 years) Aged Out No longer eligible based on patient's age to complete this topic Medical Devices Not on file Insurance [facility] [employer] [facility] Care Teams Business Development Representative Relationship Specialty Start Date End Date Karma Combs NP [address] [place] [address] [place] [address] [email or web address] PCP - General Nurse Practitioner 10/16/23 Additional Source Comments The information contained in this document represents components of the legal health record. It is not the complete legal health record.[facility]
--- OUTSIDE RECORDS SUMMARY | 2024-10-28 12:53 | XMS_ITS | Clinical Summary ---
Author Organization [facility] Address [address] [place] [id number] Phone Care Team Providers Care Supervisor Cook Room Name Role Phone Unavailable Primary Care Provider Unavailabl e Immunizations Immunization Administration Dates Next Due DTP 12/29/1991, 9,1987,05/28,1987 Hep B, ped/adol 10/31/2000,12/13/1999,05/25/1998 Hib (HbOC) 07/25/1988 MMR 05/25/1998,05/15/1988 Meningococcal Conj (Menactra) MCV4P 12/26/2005 OPV 12/29/1991, 9,1987,03/23 Td (adult) (MBL), 2 Lf tetan us toxoid, PF, adsorbed 05/30/1998 Tdap 12/31/2006 Varicella 01/08/1996 Family History Relation Name Status Comments Father Father: Myocard ial infarction, Elevated cholesterol Social History Tobacco Use Types Packs/Day Years Used Date Smoking Tobacco: Never Assessed Sex and Gender Information Value Date Recorded Sex Assigned at Not on file Legal Sex Male 4:27 PM EDT Gender Identity Not on file Sexual Orientation Not on file Plan of Treatment Health Maintenance Due Date Last Done Comments Varicella Vaccines (2 of 2 - 2-dose childhood series) 06/22/1998 01/08/1996 DTaP,Tdap,and Td Vaccines (7 - Td or Tdap) 12/31/2016 12/31/2006, 05/30/1998, 12/29/1991, Additional history exists COVID-19 Vaccine (1 - 2023- season) 2023 Influenza Vaccines (#1) 2024 HIB Vaccines Completed 07/25/1988 IPV Vaccines Completed 12/29/1991, 2 07/1988, 1987, Additional history exists MMR Vaccines Completed 05/25/1998, 05/15/1988 Hepatitis B Vaccines Completed 10/31/2000, 12/13/1999, 05/25/1998 Meningococcal Vaccine Completed 12/26/2005 HPV Vaccines Aged Out No longer eligi ble based on patient's age to complete this topic Hepatitis A Vaccines Aged Out No long er eligible based on patient's age to complete this topic Men B Vaccine Aged Out No longer elig ible based on patient's age to complete this topic Pneumococcal Vaccine Aged Out No long er eligible based on patient's age to complete this topic
== END 2024-10-28 12:26 | disposition home or self-care (01) ==
LOC: HO.HMCFM 11:54
PROVIDERS: PCP Nurse Practitioner Family; Visit Provider Nurse Practitioner Family
DX: Z00.00 Encounter for general adult medical examination without abnormal findings (principal); F41.1 Generalized anxiety disorder; Z68.41 Body mass index [BMI] 40.0-44.9, adult; E66.01 Morbid (severe) obesity due to excess calories; Z80.0 Family history of malignant neoplasm of digestive organs; Z82.49 Family history of ischemic heart disease and other diseases of the circulatory system; K64.0 First degree hemorrhoids; R80.9 Proteinuria, unspecified; B35.1 Tinea unguium

== ENCOUNTER → 2024-10-28 11:53 | Outpatient (BNVA) | payer OTHER, SELFPAY | PROVIDERS: PCP Nurse Practitioner Family; Visit Provider Nurse Practitioner Family | DX: Z00.00 Encounter for general adult medical examination without abnormal findings (principal); F41.1 Generalized anxiety disorder; E66.01 Morbid (severe) obesity due to excess calories; Z68.41 Body mass index [BMI] 40.0-44.9, adult; K64.0 First degree hemorrhoids; R80.9 Proteinuria, unspecified; B35.1 Tinea unguium; Z79.899 Other long term (current) drug therapy; Z80.0 Family history of malignant neoplasm of digestive organs; Z82.49 Family history of ischemic heart disease and other diseases of the circulatory system; Z13.31 Encounter for screening for depression; Z13.39 Encounter for screening examination for other mental health and behavioral disorders | CPT/HCPCS: 96127; 99212; 99395 ==